=== PATIENT | female | born 1970 | race African-American/Black ===

== ENCOUNTER 2021-06-15 19:57 | Emergency (ER) | payer MEDICAID ==
[~2021-06-15] VITALS: Ht 165.1 cm; Wt 104.0 kg
[2021-06-15] MEDS ORDERED: DILT300T10 PO (20:24)
[2021-06-15] MEDS ORDERED: IBUP-2029 PO (20:25)
[2021-06-15] MEDS ORDERED: PHEN100C12 PO (20:26)
[2021-06-15] MEDS ORDERED: AMLODIPINE 10MG TABLET PO ONE (21:45)
[2021-06-15] MEDS ORDERED: ACETAMINOPHEN 325MG TABLET PO STA (21:45)
[2021-06-15 23:46] LABS: BASOPHILS % 0.6 % (0.0-2.0); HEMATOCRIT. 40.7 % (36.0-48.0); HEMOGLOBIN. 13.9 g/dL (12.0-16.0); LYMPHOCYTES % 26.6 % (20.0-50.0); MEAN CORPUSCULAR VOLUME 90.8 fL (81.0-99.0); MEAN PLATELET VOLUME 8.6 fl (7.4-10.4); MONOCYTES % 7.2 % (2.0-8.0); NEUTROPHILS % 63.6 % (40.0-76.0); PLATELET 290 x1000/uL (130-400); RED BLOOD CELL COUNT 4.49 mill/uL (4.2-5.4); RED CELL DISTRIBUTION WIDTH 13.6 % (11.6-14.6)
[2021-06-15 23:53] LABS: CHLORIDE 104 mEq/L (98-107)
[2021-06-16] MEDS ORDERED: LORAZEPAM 0.5MG TABLET PO NR (01:30)
[2021-06-16] MEDS ORDERED: HYDRALAZINE HCL 25MG TABLET PO NR (02:45)
[2021-06-16 03:00] VITALS: BP 153/88
[2021-06-16] MEDS ORDERED: AMLO10TA80 MT (03:02)
[2021-06-16] MEDS ORDERED: METF-414 MT (03:02)
== END 2021-06-16 04:30 | disposition home or self-care (01) ==
LOC: ER 19:57
DX: S93.401A Sprain of unspecified ligament of right ankle, initial encounter (principal); I10 Essential (primary) hypertension; Z88.0 Allergy status to penicillin; Z98.890 Other specified postprocedural states; Z98.51 Tubal ligation status; Z86.59 Personal history of other mental and behavioral disorders; X58.XXXA Exposure to other specified factors, initial encounter; Y93.89 Activity, other specified; Y92.89 Other specified places as the place of occurrence of the external cause; Y99.8 Other external cause status
CPT/HCPCS: 36415; 71045; 73610; 80053; 84484; 85025; 93005; 99285